=== PATIENT | male | born 1975 | race Caucasian/White ===

== ENCOUNTER 2017-12-13 09:22 | Emergency (ER) | payer BC ==
[~2017-12-13] VITALS: Ht 188 cm; Wt 158.8 kg
--- NOTE | 2017-12-13 10:04 | ER.PDOC ---
General Chief Complaint: GI Bleed/Rectal Pain Stated Complaint: HEMORRHOID Time seen by MD: 10:00 Source: patient History of Present Illness Timing/Duration: 1 week Severity/Quality: mild Associated Symptoms: bleeding w/o stool, rectal pain Prior symptoms/Treatment: Similar symptoms previous Past Medical History Medical History: hypertension Surgical History: no surgical history Social History Smoking: non-smoker Alcohol Use: none Drug Use: none Reviewed Nursing Reviewed: Vital Signs, Abn. 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
[2017-12-13 10:10] VITALS: BP 187/132
[2017-12-13 10:15] VITALS: BP 145/70
== END 2017-12-13 10:15 | disposition home or self-care (01) ==
LOC: EDBD 09:22 → ER 09:22
DX: K60.2 Anal fissure, unspecified (principal); K64.8 Other hemorrhoids; I10 Essential (primary) hypertension
CPT/HCPCS: 99283